=== PATIENT | male | born 1980 | race American Indian/Alaskan Native ===

== ENCOUNTER 2021-10-01 19:18 | Emergency (ER) | payer SELFPAY ==
[2021-10-01 20:59] VITALS: BP 145/84
== END 2021-10-01 23:48 | disposition left against medical advice (07) ==
LOC: ED 19:18
DX: R51.9 Headache, unspecified (principal); Z53.21 Procedure and treatment not carried out due to patient leaving prior to being seen by health care provider

== ENCOUNTER 2021-11-20 11:26 | Emergency (ER) | payer SELFPAY | END 2021-11-20 12:27 | disposition left against medical advice (07) | LOC: ED 11:26 | DX: R51.9 Headache, unspecified (principal); Z53.21 Procedure and treatment not carried out due to patient leaving prior to being seen by health care provider ==

== ENCOUNTER 2021-11-20 13:13 | Emergency (ER) | payer SELFPAY ==
[2021-11-20 14:22] VITALS: BP 141/69
[2021-11-20] MEDS ORDERED: diphenhydrAMINE 25 MG CAP PO ONE (17:31)
[2021-11-20] MEDS ORDERED: SUMAtriptan SUCCINATE 25 MG TAB PO ONE (17:31)
[2021-11-20] MEDS ORDERED: METOCLOPRAMIDE 10 MG TAB PO ONE (17:31)
--- NOTE | 2021-11-20 17:39 | Emergency Department Report ---
ED Headache HPI - General Chief Complaint: Headache Stated Complaint: HEADACHES Time Seen by Provider: 11/20/21 17:19 - History of Present Illness Initial Comments: Patient is a 41-year-old male presents emergency room complaints of intermittent headaches for 2 months. He states it is always located on the right side. He states it is to the right jewish and around the right eye. States occasionally his eye will water and his nose will run. He has associated photophobia. He denies any nausea, vomiting, diarrhea, fever, neck stiffness, numbness, weakness, speech disturbance, gait disturbance, hearing changes. Patient denies any past medical history. No allergies to medications. Allergies/Adverse Reactions: Allergies No Known Allergies Allergy (Verified 11/20/21 14:22) Home Medications: Ambulatory Orders Acetaminophen/Codeine [Tylenol #3] 1 tab PO Q6H PRN #8 tab 12/30/16 Neomy/Baci/Polymyx Oint [Triple Antibiotic] 1 applic TP BID #1 tube 12/30/16 cephALEXin [Keflex] 500 mg PO QID #20 cap 12/30/16 SUMAtriptan SUCCINATE [Imitrex] 25 mg PO QDAY PRN #18 tab 11/20/21 ED Review of Systems ROS: Stated complaint: HEADACHES Other details as noted in HPI Comment: All other systems reviewed and negative ED Past Medical Hx - Past Medical History Additional medical history: MVP - Surgical History Additional Surgical History: tonsillectomy/adnoidopathy - Social History Smoking Status: Current Every Day Smoker Substance Use Type: Alcohol - Medications Home Medications: Home Medications Medication Instructions Recorded Confirmed Last Taken Type Acetaminophen/Codeine [Tylenol #3] 1 tab PO Q6H PRN #8 tab 12/30/16 Unknown Rx Neomy/Baci/Polymyx Oint [Triple 1 applic TP BID #1 tube 12/30/16 Unknown Rx Antibiotic] cephALEXin [Keflex] 500 mg PO QID #20 cap 12/30/16 Unknown Rx SUMAtriptan SUCCINATE [Imitrex] 25 mg PO QDAY PRN #18 tab 11/20/21 Unknown Rx ED Physical Exam - General Limitations: No Limitations General appearance: alert, in no apparent distress - Head Head exam: Present: atraumatic, normocephalic - Eye Eye exam: Present: normal appearance, PERRL, EOMI. Absent: periorbital swelling, periorbital tenderness - ENT ENT exam: Present: mucous membranes moist - Neck Neck exam: Present: full ROM. Absent: meningismus - Respiratory Respiratory exam: Present: normal lung sounds bilaterally. Absent: respiratory distress, wheezes, rales, rhonchi, stridor, chest wall tenderness, accessory muscle use, decreased breath sounds, prolonged expiratory - Cardiovascular Cardiovascular Exam: Present: regular rate, normal rhythm, normal heart sounds. Absent: systolic murmur, diastolic murmur, rubs, gallop - Neurological Exam Neurological exam: Present: alert, oriented X3, CN II-XII intact, normal gait, other (normal finger to nose, normal heel to escobar, 5/5 muscle strength BLE/BUE, no pronator drift, no facial asymmetry, sensation intact). Absent: motor sensory deficit - Psychiatric Psychiatric exam: Present: normal affect, normal mood - Skin Skin exam: Present: warm, dry, intact ED Course Vital Signs 11/20/21 14:20 Temperature 98.2 F Pulse Rate 77 Respiratory 18 Rate Blood Pressure 141/69 [Left] O2 Sat by Pulse 100 Oximetry ED Medical Decision Making - Medical Decision Making Patient is a 41-year-old male presents emergency room complaints of intermittent headaches for 2 months. He states it is always located on the right side. He states it is to the right jewish and around the right eye. States occasionally his eye will water and his nose will run. He has associated photophobia. He denies any nausea, vomiting, diarrhea, fever, neck stiffness, numbness, weakness, speech disturbance, gait disturbance, hearing changes. Patient denies any past medical history. No allergies to medications. Vitals are stable. Patient has no focal neuro deficits. He has had no trauma. He has no meningeal signs. Patient given p.o. medications with some improvement of symptoms. Symptoms could be related to cluster headaches versus migraines. Patient given prescription for medication. Advised patient Take medication as prescribed as needed. Increase your fluid intake. Follow-up with your primary care doctor. Follow-up with a neurologist. Return to emergency room for any new or worsening symptoms. Critical care attestation.: If time is entered above; I have spent that time in minutes in the direct care of this critically ill patient, excluding procedure time. ED Disposition Clinical Impression: Headache Qualifiers: Headache type: unspecified Headache chronicity pattern: acute headache Intractability: not intractable Qualified Code(s): R51.9 - Headache, unspecified Disposition: 01 HOME / SELF CARE / HOMELESS Is pt being admited?: No Does the pt Need Aspirin: No Condition: Stable Instructions: Cluster Headache Additional Instructions: Take medication as prescribed as needed. Increase your fluid intake. Follow-up with your primary care doctor. Follow-up with a neurologist. Return to emergency room for any new or worsening symptoms. Prescriptions: SUMAtriptan SUCCINATE [Imitrex] 25 mg PO QDAY PRN #18 tab PRN Reason: headache Referrals: [facility] [Provider Group] - 3-5 Days GENESIS ZAYAS MD [Staff Physician] - 3-5 Days [facility] [Provider Group] - 3-5 Days IRLANDA MALAGON MD [Referring] - 3-5 Days (neuorology) Forms: Work/School Release Form(ED) Time of Disposition: 17:35 Print Language: SINHALA
== END 2021-11-20 18:44 | disposition home or self-care (01) ==
LOC: ED 13:13
DX: R51.9 Headache, unspecified (principal); F17.200 Nicotine dependence, unspecified, uncomplicated
CPT/HCPCS: 99282